=== PATIENT | male | born 1995 | race Caucasian/White ===

== ENCOUNTER 2024-10-29 21:24 | Emergency (ER) | payer OTHER ==
[~2024-10-29] VITALS: Ht 180.3 cm; Wt 95.2 kg
[2024-10-29 21:41] VITALS: BP 160/114
[2024-10-29] MEDS ORDERED: AMOCLA875 PO (23:12)
== END 2024-10-29 23:22 | disposition home or self-care (01) ==
LOC: ER 21:24
DX: R00.2 Palpitations (principal); K08.89 Other specified disorders of teeth and supporting structures; I10 Essential (primary) hypertension
CPT/HCPCS: 93005; 93010; 99284-25

== ENCOUNTER 2024-12-02 17:22 | Emergency (ER) | payer OTHER ==
[~2024-12-02] VITALS: Ht 177.8 cm; Wt 95.2 kg
[~2024-12-02 17:22] MED LIST: AMOCLA875 PO
[2024-12-02 18:18] LABS: BASOPHILS ABSOLUTE AUTO 0.03 K/mm3 (0.00-0.23); BASOPHILS PERCENT AUTO 0 % (0-2); EOSINOPHILS ABSOLUTE AUTO 0.03 K/mm3 (0.00-0.68); EOSINOPHILS PERCENT AUTO 0 % (0-6); Hematocrit 48.6 % (37.0-53.0); Hemoglobin 16.7 g/dL (13.5-17.5); IMMATURE GRAN ABSOLUTE AUTO 0.02 K/mm3 (0.00-0.10); IMMATURE GRAN PERCENT AUTO 0 % (0-1); LYMPHOCYTES ABSOLUTE AUTO 2.06 K/mm3 (0.84-5.20); LYMPHOCYTES PERCENT AUTO 22 % (21-46); MONOCYTES ABSOLUTE AUTO 0.62 K/mm3 (0.16-1.47); MONOCYTES PERCENT AUTO 7 % (4-13); Mean Corpuscular HGB 29.6 pg (26.0-34.0); Mean Corpuscular HGB Conc 34.4 g/dL (31.5-36.5); Mean Corpuscular Volume 86 fL (80-100); Mean Platelet Volume 9.2 fL (9.1-12.4); NEUTROPHILS ABSOLUTE AUTO 6.45 K/mm3 (1.96-9.15); NEUTROPHILS PERCENT AUTO 70 % (41-73); Platelet Count 285 K/mm3 (150-400); RDW Coefficient Variation 11.8 % (11.7-14.2); RDW Standard Deviation 37.4 fL (35.1-46.3); Red Blood Cell Count 5.65 M/mm3 (4.30-5.90); White Blood Cell Count 9.21 K/mm3 (4.00-11.30)
[2024-12-02 18:37] LABS: Albumin, Blood 4.1 g/dL (3.4-5.0); Albumin/Globulin Ratio 1.1 (0.8-1.8); Bilirubin, Total 0.4 mg/dL (0.1-1.0); Bun/Creatinine Ratio 13.3 (12.0-20.0); Calcium, Blood 9.2 mg/dL (8.5-10.1); Creatinine, Blood 0.9 mg/dL (0.60-1.20); Globulin, Blood 3.7 g/dL (2.2-4.0); Total Protein, Blood 7.8 g/dL (6.4-8.2)
[2024-12-02] MEDS ORDERED: Ondansetron HCl 2 MG / ML 2ML Vial IV ONE (21:15)
[2024-12-02] MEDS ORDERED: Ketorolac Tromethamine 15mg Vial IV ONE (21:15)
[2024-12-02] MEDS ORDERED: ClonazePAM 0.5 MG Tab PO ONE (21:15)
[2024-12-02] MEDS ORDERED: Acetaminophen 325 MG TABLET PO ONE (21:15)
[2024-12-02 22:44] VITALS: BP 131/95
== END 2024-12-02 22:44 | disposition home or self-care (01) ==
LOC: ER 17:22
PROVIDERS: Physician Assistant
DX: I10 Essential (primary) hypertension (principal); R11.0 Nausea
CPT/HCPCS: 71046; 80053; 83690; 84484; 85025; 93005; 93010; 96374; 99284-25; A9270; J2405

== ENCOUNTER 2024-12-12 14:39 | Emergency (ER) | payer OTHER ==
[~2024-12-12] VITALS: Ht 177.8 cm; Wt 93.0 kg
[2024-12-12 14:42] VITALS: BP 138/85
== END 2024-12-12 16:14 | disposition home or self-care (01) ==
LOC: ER 14:39
DX: H53.8 Other visual disturbances (principal); R51.9 Headache, unspecified; I10 Essential (primary) hypertension
CPT/HCPCS: 99283

== ENCOUNTER 2025-03-02 02:25 | Emergency (ER) | payer OTHER ==
[~2025-03-02] VITALS: Ht 182.9 cm; Wt 83.9 kg
[2025-03-02 02:45] LABS: BASOPHILS ABSOLUTE AUTO 0.04 K/mm3 (0.00-0.23); BASOPHILS PERCENT AUTO 1 % (0-2); EOSINOPHILS ABSOLUTE AUTO 0.18 K/mm3 (0.00-0.68); EOSINOPHILS PERCENT AUTO 3 % (0-6); Hematocrit 46.8 % (37.0-53.0); Hemoglobin 16.3 g/dL (13.5-17.5); IMMATURE GRAN ABSOLUTE AUTO 0.01 K/mm3 (0.00-0.10); IMMATURE GRAN PERCENT AUTO 0 % (0-1); LYMPHOCYTES PERCENT AUTO 40 % (21-46); MONOCYTES ABSOLUTE AUTO 0.57 K/mm3 (0.16-1.47); MONOCYTES PERCENT AUTO 8 % (4-13); Mean Corpuscular HGB 29.6 pg (26.0-34.0); Mean Corpuscular HGB Conc 34.8 g/dL (31.5-36.5); Mean Corpuscular Volume 85 fL (80-100); Mean Platelet Volume 9.5 fL (9.1-12.4); NEUTROPHILS ABSOLUTE AUTO 3.33 K/mm3 (1.96-9.15); NEUTROPHILS PERCENT AUTO 48 % (41-73); Platelet Count 243 K/mm3 (150-400); RDW Coefficient Variation 11.9 % (11.7-14.2); RDW Standard Deviation 37.4 fL (35.1-46.3); Red Blood Cell Count 5.51 M/mm3 (4.30-5.90); White Blood Cell Count 6.93 K/mm3 (4.00-11.30)
[2025-03-02 02:56] LABS: Albumin, Blood 4.4 g/dL (3.4-5.0); Albumin/Globulin Ratio 1.3 (0.8-1.8); Bilirubin, Total 0.6 mg/dL (0.1-1.0); Bun/Creatinine Ratio 15.2 (12.0-20.0); Calcium, Blood 9.2 mg/dL (8.5-10.1); Creatinine, Blood 0.99 mg/dL (0.60-1.20); Globulin, Blood 3.3 g/dL (2.2-4.0); Potassium, Blood 4.1 mmol/L (3.5-5.5); Total Protein, Blood 7.7 g/dL (6.4-8.2)
[2025-03-02 03:30] VITALS: BP 120/73
== END 2025-03-02 03:45 | disposition home or self-care (01) ==
LOC: ER 02:25
PROVIDERS: Emergency Medicine
DX: R07.89 Other chest pain (principal); I25.10 Atherosclerotic heart disease of native coronary artery without angina pectoris; I10 Essential (primary) hypertension; Z59.89 Other problems related to housing and economic circumstances; Z79.2 Long term (current) use of antibiotics
CPT/HCPCS: 71046; 80053; 84484; 85025; 93005; 93010; 99285-25